=== PATIENT | male | born 1960 | race African-American/Black ===

== ENCOUNTER 2017-03-10 09:49 | Inpatient (IN) | payer OTHER ==
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
[2017-03-10] MEDS ORDERED: MAG HYDROX/AL HYDROX/SIMETH 30 ML UNIT-DOSE CUP PO PRN (12:51)
[2017-03-10] MEDS ORDERED: MAGNESIUM HYDROX 2400MG/30ML ORAL SUSPENSION 30 ML CUP PO PRN (12:51)
[2017-03-10] MEDS ORDERED: MENTHOL/PHENOL 1 EACH UD MM PRN (12:51)
[2017-03-10] MEDS ORDERED: guaiFENesin/D-METHORPHAN HB 10 ML UNIT-DOSE CUPS PO PRN (12:51)
[2017-03-10] MEDS ORDERED: P-EPHED 60MG/TRIPROLIDI 2.5MG TABLET PO PRN (12:51)
[2017-03-10] MEDS ORDERED: MAGNESIUM CITRATE 300 ML BOTTLE PO PRN (12:51)
[2017-03-10] MEDS ORDERED: LOPERAMIDE HCL 2 MG CAPSULE PO PRN (12:51)
[2017-03-10] MEDS ORDERED: ACETAMINOPHEN 325 MG TABLET (FP) PO PRN (12:51)
[2017-03-10] MEDS ORDERED: hydrOXYzine PAMOATE 25 MG CAPSULE (FP) PO PRN (12:51)
[2017-03-10] MEDS ORDERED: IBUPROFEN 400 MG TABLET (FP) PO PRN (12:51)
[2017-03-10] MEDS ORDERED: diazePAM 5 MG TABLET PO ONE (13:57)
[2017-03-10] MEDS: diazePAM 5 MG TABLET PO SCH ×2 (14:50→22:51)
--- NOTE | 2017-03-10 15:09 | CONSULT ---
[facility] Psychiatric Consult - Data Date of interview: 03/10/17 Admission source: [facility] Identifying data: This is 56 years old male with psychiatric hospitalization historyintoxicted with: Alcohol, Opioids, Nicotine and Xanax Substance Abuse History: - Smoking Cessation. Smoking history: Never smoked. Have you smoked in the past 12 months: No. Aproximately how many cigarettes per day: 0. Cigars Per Day: 0. Hx Chewing Tobacco Use: No. Initiated information on smoking cessation: No. 'Breaking Loose' booklet given: . - Substance & Tx. History. Hx Alcohol Use: Yes. Hx Substance Use: Yes. Substance Use Type: Alcohol, Tranquilizers. Hx Substance Use Treatment: Yes ( [facility] ). - Substances Abused. Alcohol-beer. Route: Oral. Frequency: Daily. Amount used: 1-6 pk. Age of first use: 17. Date of Last Use: . Xanax. Route: Oral. Frequency: Daily. Amount used: 2 mg. Age of first use: 54. Date of Last Use: 03/08/17 Medical History: DM-2 Psychiatric History: Patients reports history of MDD, Panic disorder, anxiety and depression, reports taking prior to admission: Insulin and Klonopin Physical/Sexual Abuse/Trauma History: Unclear Additional Comment: Observation. Detox Unit Care Protocol Mental Status Exam - Mental Status Exam Alert and Oriented to: Person Cognitive Function: Impaired Patient Appearance: Unkempt Mood: Nervous, Anxious, Irritable Affect: Inappropriate Patient Behavior: Restless, Guarded, Suspicious, Talkative Speech Pattern: Excessive Voice Loudness: Mildly Loud Thought Process: Circumstantial, Flight of Ideas Thought Disorder: Present Hallucinations: Denies Suicidal Ideation: Denies Homicidal Ideation: Denies Insight/Judgement: Impaired Sleep: Difficulty falling asleep Appetite: Weight gain Muscle strength/Tone: Mild Hypertonicity Gait/Station: Normal Additional Comments: Observation. Detox Unit Care Protocol Psychiatric Findings - Problem List ([place] 1, 2,3) (1) Alcohol dependence with uncomplicated withdrawal Current Visit: Yes Status: Chronic (2) Anxiety and depression Current Visit: Yes Status: Chronic (3) Methadone maintenance therapy patient Current Visit: Yes Status: Chronic Comment: st tee 80mg pending verification (4) Opioid dependence on agonist therapy Current Visit: Yes Status: Chronic (5) Xanax use disorder, mild Current Visit: Yes Status: Chronic (6) MDD (major depressive disorder), recurrent episode, moderate Current Visit: No Status: Chronic Comment: . - Initial Treatment Plan Initial Treatment Plan: Observation. Detox Unit Care Protocol. Haldol 1mg q4 po prn for anxiety and agitation
[2017-03-10] MEDS ORDERED: HALOPERIDOL 1 MG TABLET (FP) PO PRN (15:15)
[2017-03-10] MEDS ORDERED: INSULIN SLIDING SCALE (NOVOLOG) 1 VIAL SQ SCH (16:30)
[2017-03-10] MEDS ORDERED: INSULIN (NOVOLOG) ASPART 100 UNITS/ML 10ML VIAL ONE (16:40)
[2017-03-10] MEDS: diazePAM 5 MG TABLET PO PRN (16:57)
[2017-03-10 17:45] LABS: URINE APPEARANCE CLEAR; URINE BILIRUBIN NEGATIVE (NEGATIVE); URINE BLOOD NEGATIVE (NEGATIVE); URINE COLOR STRAW; URINE GLUCOSE (UA) 3+ (NEGATIVE); URINE KETONE NEGATIVE (NEGATIVE); URINE LEUK ESTERASE NEGATIVE (NEGATIVE); URINE NITRITE NEGATIVE (NEGATIVE); URINE PROTEIN NEGATIVE (NEGATIVE); URINE UROBILINOGEN NEGATIVE E.U./dl (0.2-1.0)
[2017-03-10] MEDS: THIAMINE HCL 100 MG TABLET (FP) PO SCH (22:51)
[2017-03-11] MEDS ORDERED: METHADONE HCL 10 MG TABLET ONE (05:02)
[2017-03-11] MEDS ORDERED: METHADONE HCL 40 MG DISPERSABLE TABLET ONE (05:03)
[2017-03-11] MEDS: METHADONE 80 MG, METHADONE 20 MG PO SCH (05:31)
[2017-03-11] MEDS: diazePAM 5 MG TABLET PO SCH ×3 (05:31→22:33)
[2017-03-11] MEDS ORDERED: METHADONE HCL 10 MG TABLET PO SCH (06:00)
[2017-03-11] MEDS ORDERED: INSULIN (NOVOLOG) ASPART 100 UNITS/ML 10ML VIAL ONE ×2 (06:38→11:31)
[2017-03-11] MEDS: INSULIN (NOVOLOG MIX 70/30) 100 UNITS/ML MDV SQ SCH ×2 (06:54→16:51)
[2017-03-11] MEDS: INSULIN SLIDING SCALE (NOVOLOG) 1 VIAL SQ SCH ×3 (06:55→16:51)
[2017-03-11] MEDS: PRENATAL VITAMINS W/ FOLIC ACID TABLET (FP) PO SCH (10:26)
[2017-03-11] MEDS: diazePAM 5 MG TABLET PO PRN ×3 (10:26→21:01)
--- NOTE | 2017-03-11 11:17 | PN ---
S CIWA - CIWA Score Nausea/Vomitin-No Nausea/No Vomiting Muscle Tremors: 4-Moderate,w/Arms Extend Anxiety: 4-Mod. Anxious/Guarded Agitation: 4-Moderately Restless Paroxysmal Sweats: 1-Minimal Palms Moist Orientation: 0-Oriented Tacttile Disturbances: 3-Moderate Itch/Numb/Burn Auditory Disturbances: 0-None Visual Disturbances: 0-None Headache: 0-None Present CIWA-Ar Total Score: 16 BHS Progress Note (SOAP) Subjective: ANXIETY,TREMORS,SWEATS. Objective: 03/11/17 11:18 Vital Signs Temperature 96.8 F L 03/11/17 10:04 Pulse Rate 83 03/11/17 10:04 Respiratory Rate 18 03/11/17 10:04 Blood Pressure 137/92 03/11/17 10:04 O2 Sat by Pulse Oximetry (%) Laboratory Last Values POC Glucometer 320 UNITS (()) 03/11/17 05:07 Urine Color Straw 03/10/17 14:00 Urine Appearance Clear 03/10/17 14:00 Urine pH 6.0 (5.0-8.0) 03/10/17 14:00 Ur Specific [place] 1.007 (1.001-1.035) 03/10/17 14:00 Urine Protein Negative (NEGATIVE) 03/10/17 14:00 Urine Glucose (UA) 3+ (NEGATIVE) H 03/10/17 14:00 Urine Ketones Negative (NEGATIVE) 03/10/17 14:00 Urine Blood Negative (NEGATIVE) 03/10/17 14:00 Urine Nitrite Negative (NEGATIVE) 03/10/17 14:00 Urine Bilirubin Negative (NEGATIVE) 03/10/17 14:00 Urine Urobilinogen Negative E.U./dl (0.2-1.0) 03/10/17 14:00 Ur Leukocyte Esterase Negative (NEGATIVE) 03/10/17 14:00 Assessment: 03/11/17 11:18 WITHDRAWAL SX Plan: CONTINUE DETOX
[2017-03-11 11:26] LABS: MCH 27.1 pg (25.7-33.7); MCHC 32.6 g/dl (32.0-35.9); MEAN PLT VOLUME 9.8 fl (7.5-11.1); PLATELET COUNT 233 K/MM3 (134-434); RDW 16.8 % (11.9-15.9); WHITE BLOOD COUNT 3.7 K/mm3 (4.0-10.0)
--- NOTE | 2017-03-11 11:28 | EKG ---
Test Reason : Blood Pressure : / mmHG Vent. Rate : 070 BPM Atrial Rate : 070 BPM P-R Int : 152 ms QRS Dur : 102 ms QT Int : 418 ms P-R-T Axes : 019 -22 029 degrees QTc Int : 451 ms NORMAL SINUS RHYTHM WITH SINUS ARRHYTHMIA NON-SPECIFIC INTRA-VENTRICULAR CONDUCTION DELAY NO PREVIOUS ECGS AVAILABLE Confirmed by ANDREEA MALIK MD ([id number]) on 03/11/2017 11:28:11 AM Referred By: Confirmed By:ANDREEA MALIK MD
[2017-03-11 11:34] LABS: ALBUMIN 4.2 g/dl (3.4-5.0); ANION GAP 9 (8-16); CALCIUM 9.4 mg/dL (8.5-10.1); CO2 34 mmol/L (21-32)
[2017-03-11 11:38] LABS: ALK PHOS 153 U/L (45-117); BILIRUBIN,TOTAL 0.9 mg/dL (0.2-1.0); COCKROFT - GAULT 120.48; CREATININE 0.8 mg/dL (0.7-1.3); SGOT/AST 27 U/L (15-37); SGPT/ALT 26 U/L (12-78); TOT PROT 7.8 g/dl (6.4-8.2)
[2017-03-11 11:40] LABS: GLUCOSE,RANDOM 385 mg/dL (74-106)
[2017-03-11] MEDS: THIAMINE HCL 100 MG TABLET (FP) PO SCH (22:33)
[2017-03-12] MEDS ORDERED: METHADONE HCL 10 MG TABLET ONE (01:59)
[2017-03-12] MEDS ORDERED: METHADONE HCL 40 MG DISPERSABLE TABLET ONE (02:00)
[2017-03-12] MEDS: METHADONE 80 MG, METHADONE 20 MG PO SCH (05:10)
[2017-03-12] MEDS: diazePAM 5 MG TABLET PO PRN ×4 (05:13→20:54)
[2017-03-12] MEDS: INSULIN SLIDING SCALE (NOVOLOG) 1 VIAL SQ SCH ×3 (06:16→16:40)
[2017-03-12] MEDS ORDERED: INSULIN (NOVOLOG MIX 70/30) 100 UNITS/ML MDV SQ ONE (06:18)
[2017-03-12] MEDS: INSULIN (NOVOLOG MIX 70/30) 100 UNITS/ML MDV SQ SCH ×2 (06:18→16:40)
[2017-03-12] MEDS ORDERED: INSULIN (NOVOLOG) ASPART 100 UNITS/ML 10ML VIAL ONE ×2 (06:27→16:35)
[2017-03-12] MEDS: diazePAM 5 MG TABLET PO SCH ×2 (10:30→22:49)
[2017-03-12] MEDS: PRENATAL VITAMINS W/ FOLIC ACID TABLET (FP) PO SCH (10:30)
--- NOTE | 2017-03-12 14:17 | PN ---
S CIWA - CIWA Score Nausea/Vomitin Muscle Tremors: 2 Anxiety: 2 Agitation: 2 Paroxysmal Sweats: 2 Orientation: 0-Oriented Tacttile Disturbances: 1-Very Mild Itch/Numbness Auditory Disturbances: 0-None Visual Disturbances: 1-Very Mild Sensitivity Headache: 2-Mild CIWA-Ar Total Score: 14 BHS COWS - Scale Resting Pulse: 0= [place] 80 or Below Sweatin=Flushed/Facial Moisture Restless Observation: 1= Difficult to Sit Still Pupil Size: 0= Normal to Room Light Bone or Joint Aches: 2= Severe Diffuse Aches Runny Nose/ Eye Tearin= Runny Nose/Eyes GI Upset > 30mins: 1= Stomach Cramp Tremor Observation of Outstretched Hands: 2= Slight Tremor Visible Yawning Observation: 1= 1-2x During Session Anxiety or Irritability: 2=Irritable/Anxious Goose Flesh Skin: 0=Smooth Skin COWS Score: 13 S Progress Note (SOAP) Subjective: Anxiety, constipation, foot pain, abdominal discomfort and sweats Objective: 03/12/17 14:17 Vital Signs - 8 hr 03/12/17 03/12/17 06:49 09:49 Temperature 96.8 F L 96.0 F L Pulse Rate 71 78 Respiratory 18 18 Rate Blood Pressure 134/80 115/74 Laboratory Last Values WBC 3.7 K/mm3 (4.0-10.0) L 03/11/17 06:00 RBC 4.72 M/mm3 (4.00-5.60) 03/11/17 06:00 Hgb 12.8 GM/dL (11.7-16.9) 03/11/17 06:00 Hct 39.2 % (35.4-49) 03/11/17 06:00 MCV 83.0 fl (80-96) 03/11/17 06:00 MCHC 32.6 g/dl (32.0-35.9) 03/11/17 06:00 RDW 16.8 % (11.9-15.9) H D 03/11/17 06:00 Plt Count 233 K/MM3 (134-434) 03/11/17 06:00 MPV 9.8 fl (7.5-11.1) 03/11/17 06:00 Sodium 135 mmol/L (136-145) L 03/11/17 06:00 Potassium 3.9 mmol/L (3.5-5.1) 03/11/17 06:00 Chloride 92 mmol/L (98-107) L 03/11/17 06:00 Carbon Dioxide 34 mmol/L (21-32) H 03/11/17 06:00 Anion Gap 9 (8-16) 03/11/17 06:00 BUN 7 mg/dL (7-18) D 03/11/17 06:00 Creatinine 0.8 mg/dL (0.7-1.3) 03/11/17 06:00 Creat Clearance w eGFR > 60 (>60) 03/11/17 06:00 POC Glucometer 76 UNITS (()) 03/12/17 11:06 Random Glucose 385 mg/dL (74-106) H* D 03/11/17 06:00 Calcium 9.4 mg/dL (8.5-10.1) 03/11/17 06:00 Total Bilirubin 0.9 mg/dL (0.2-1.0) D 03/11/17 06:00 AST 27 U/L (15-37) D 03/11/17 06:00 ALT 26 U/L (12-78) D 03/11/17 06:00 Alkaline Phosphatase 153 U/L (45-117) H 03/11/17 06:00 Total Protein 7.8 g/dl (6.4-8.2) 03/11/17 06:00 Albumin 4.2 g/dl (3.4-5.0) D 03/11/17 06:00 Urine Color Straw 03/10/17 14:00 Urine Appearance Clear 03/10/17 14:00 Urine pH 6.0 (5.0-8.0) 03/10/17 14:00 Ur Specific [place] 1.007 (1.001-1.035) 03/10/17 14:00 Urine Protein Negative (NEGATIVE) 03/10/17 14:00 Urine Glucose (UA) 3+ (NEGATIVE) H 03/10/17 14:00 Urine Ketones Negative (NEGATIVE) 03/10/17 14:00 Urine Blood Negative (NEGATIVE) 03/10/17 14:00 Urine Nitrite Negative (NEGATIVE) 03/10/17 14:00 Urine Bilirubin Negative (NEGATIVE) 03/10/17 14:00 Urine Urobilinogen Negative E.U./dl (0.2-1.0) 03/10/17 14:00 Ur Leukocyte Esterase Negative (NEGATIVE) 03/10/17 14:00 RPR Titer Nonreactive (NONREACTIVE) 03/11/17 06:00 labs noted, elevated glucose Assessment: 03/12/17 14:17 withdrawal sx Plan: continue detox and diabetes regimen
[2017-03-12] MEDS: diphenhydrAMINE HCL 50 MG CAPSULE PO PRN (22:49)
[2017-03-12] MEDS: THIAMINE HCL 100 MG TABLET (FP) PO SCH (22:49)
[2017-03-13] MEDS ORDERED: METHADONE HCL 10 MG TABLET ONE (03:46)
[2017-03-13] MEDS ORDERED: METHADONE HCL 40 MG DISPERSABLE TABLET ONE (03:47)
[2017-03-13] MEDS: METHADONE 80 MG, METHADONE 20 MG PO SCH (05:25)
[2017-03-13] MEDS: diazePAM 5 MG TABLET PO PRN (05:27)
[2017-03-13] MEDS ORDERED: INSULIN (NOVOLOG) ASPART 100 UNITS/ML 10ML VIAL ONE ×2 (05:44→16:34)
[2017-03-13] MEDS: INSULIN (NOVOLOG MIX 70/30) 100 UNITS/ML MDV SQ SCH ×2 (06:39→16:36)
[2017-03-13] MEDS: INSULIN SLIDING SCALE (NOVOLOG) 1 VIAL SQ SCH ×3 (06:40→16:37)
[2017-03-13] MEDS: PRENATAL VITAMINS W/ FOLIC ACID TABLET (FP) PO SCH (10:34)
[2017-03-13] MEDS: diazePAM 5 MG TABLET PO SCH ×2 (10:34→21:21)
--- NOTE | 2017-03-13 16:28 | PN ---
[facility] Progress Note (SOAP) Subjective: Anxious, restless, interrupted sleep; concerned about his finger sticks too high (ac breakfast this morning was 360) and that he doesn't want to lose his legs. Patient stated his A1c 21/2 months ago was 6.2% and that had DMT2 x 30 years and takes 8 units of insulin 70/30 ac breakfast and ac dinner. He reports taking regular insulin sliding scale with coverage ac lunch and ac supper. Patient requesting FS QID as he has been doing at home. Machine Made Shoe Unit Worker educated patient on importance of diabetic diet but patient reluctant to change his diet stating that he doesn't eat diabetic diet and wants to stay on regular diet. Patient stated lantus and oral antidiabetic agents no longer works for him and that he follows up with his [facility] regularly. Objective: 03/13/17 16:27 Last Vital Signs Temp Pulse Resp BP Pulse Ox 97.6 F 74 18 121/78 03/13/17 14:00 03/13/17 14:00 03/13/17 14:00 03/13/17 14:00 Laboratory Tests 03/10/17 03/10/17 03/10/17 12:28 14:00 16:21 WBC RBC Hgb Hct MCV MCHC RDW Plt Count MPV Sodium Potassium Chloride Carbon Dioxide Anion Gap BUN Creatinine Creat Clearance w eGFR POC Glucometer 431 456 Random Glucose Calcium Total Bilirubin AST ALT Alkaline Phosphatase Total Protein Albumin Urine Color Straw Urine Appearance Clear Urine pH 6.0 Ur Specific [place] 1.007 Urine Protein Negative Urine Glucose (UA) 3+ H Urine Ketones Negative Urine Blood Negative Urine Nitrite Negative Urine Bilirubin Negative Urine Urobilinogen Negative Ur Leukocyte Esterase Negative RPR Titer 03/11/17 03/11/17 03/11/17 05:07 06:00 06:00 WBC 3.7 L RBC 4.72 Hgb 12.8 Hct 39.2 MCV 83.0 MCHC 32.6 RDW 16.8 H D Plt Count 233 MPV 9.8 Sodium 135 L Potassium 3.9 Chloride 92 L Carbon Dioxide 34 H Anion Gap 9 BUN 7 D Creatinine 0.8 Creat Clearance w eGFR > 60 POC Glucometer 320 Random Glucose 385 H* D Calcium 9.4 Total Bilirubin 0.9 D AST 27 D ALT 26 D Alkaline Phosphatase 153 H Total Protein 7.8 Albumin 4.2 D Urine Color Urine Appearance Urine pH Ur Specific [place] Urine Protein Urine Glucose (UA) Urine Ketones Urine Blood Urine Nitrite Urine Bilirubin Urine Urobilinogen Ur Leukocyte Esterase RPR Titer 03/11/17 03/11/17 03/11/17 06:00 11:29 16:19 WBC RBC Hgb Hct MCV MCHC RDW Plt Count MPV Sodium Potassium Chloride Carbon Dioxide Anion Gap BUN Creatinine Creat Clearance w eGFR POC Glucometer 243 188 Random Glucose Calcium Total Bilirubin AST ALT Alkaline Phosphatase Total Protein Albumin Urine Color Urine Appearance Urine pH Ur Specific [place] Urine Protein Urine Glucose (UA) Urine Ketones Urine Blood Urine Nitrite Urine Bilirubin Urine Urobilinogen Ur Leukocyte Esterase RPR Titer Nonreactive 03/12/17 03/12/17 03/12/17 05:09 11:06 16:29 WBC RBC Hgb Hct MCV MCHC RDW Plt Count MPV Sodium Potassium Chloride Carbon Dioxide Anion Gap BUN Creatinine Creat Clearance w eGFR POC Glucometer 350 76 364 Random Glucose Calcium Total Bilirubin AST ALT Alkaline Phosphatase Total Protein Albumin Urine Color Urine Appearance Urine pH Ur Specific [place] Urine Protein Urine Glucose (UA) Urine Ketones Urine Blood Urine Nitrite Urine Bilirubin Urine Urobilinogen Ur Leukocyte Esterase RPR Titer 03/13/17 03/13/17 05:23 10:36 WBC RBC Hgb Hct MCV MCHC RDW Plt Count MPV Sodium Potassium Chloride Carbon Dioxide Anion Gap BUN Creatinine Creat Clearance w eGFR POC Glucometer 360 118 Random Glucose Calcium Total Bilirubin AST ALT Alkaline Phosphatase Total Protein Albumin Urine Color Urine Appearance Urine pH Ur Specific [place] Urine Protein Urine Glucose (UA) Urine Ketones Urine Blood Urine Nitrite Urine Bilirubin Urine Urobilinogen Ur Leukocyte Esterase RPR Titer Labs noted Assessment: 03/13/17 16:27 Withdrawal symptoms Plan: Continue detox DMT2: FS ac meals and HS, continue regular insulin SS with coverage
[2017-03-13] MEDS: THIAMINE HCL 100 MG TABLET (FP) PO SCH (21:21)
[2017-03-13] MEDS: diphenhydrAMINE HCL 50 MG CAPSULE PO PRN (21:21)
[2017-03-14] MEDS ORDERED: METHADONE HCL 10 MG TABLET ONE (04:56)
[2017-03-14] MEDS ORDERED: METHADONE HCL 40 MG DISPERSABLE TABLET ONE (04:57)
[2017-03-14] MEDS: METHADONE 80 MG, METHADONE 20 MG PO SCH (05:08)
[2017-03-14 06:21] VITALS: BP 132/86; PULSE 79; TEMP 96.4
[2017-03-14] MEDS ORDERED: INSULIN (NOVOLOG) ASPART 100 UNITS/ML 10ML VIAL ONE (06:22)
[2017-03-14] MEDS: INSULIN (NOVOLOG MIX 70/30) 100 UNITS/ML MDV SQ SCH (06:28)
[2017-03-14] MEDS: INSULIN SLIDING SCALE (NOVOLOG) 1 VIAL SQ SCH (06:29)
[2017-03-14] MEDS ORDERED: diazePAM 5 MG TABLET PO SCH (10:00)
--- NOTE | 2017-03-15 13:24 | DS ---
[facility] Detox Discharge Summary Admission Date: 03/10/17 Discharge Date: 03/15/17 - History Present History: Alcohol Dependence, MMTP Pertinent Past History: Type II DM - Physical Exam Results Vital Signs: Vital Signs Temperature 96.4 F L 03/14/17 06:20 Pulse Rate 79 03/14/17 06:20 Respiratory Rate 16 03/14/17 06:20 Blood Pressure 132/86 03/14/17 06:20 O2 Sat by Pulse Oximetry (%) Pertinent Admission Physical Exam Findings: Withdrawal sx. Laboratory Last Values WBC 3.7 K/mm3 (4.0-10.0) L 03/11/17 06:00 RBC 4.72 M/mm3 (4.00-5.60) 03/11/17 06:00 Hgb 12.8 GM/dL (11.7-16.9) 03/11/17 06:00 Hct 39.2 % (35.4-49) 03/11/17 06:00 MCV 83.0 fl (80-96) 03/11/17 06:00 MCHC 32.6 g/dl (32.0-35.9) 03/11/17 06:00 RDW 16.8 % (11.9-15.9) H D 03/11/17 06:00 Plt Count 233 K/MM3 (134-434) 03/11/17 06:00 MPV 9.8 fl (7.5-11.1) 03/11/17 06:00 Sodium 135 mmol/L (136-145) L 03/11/17 06:00 Potassium 3.9 mmol/L (3.5-5.1) 03/11/17 06:00 Chloride 92 mmol/L (98-107) L 03/11/17 06:00 Carbon Dioxide 34 mmol/L (21-32) H 03/11/17 06:00 Anion Gap 9 (8-16) 03/11/17 06:00 BUN 7 mg/dL (7-18) D 03/11/17 06:00 Creatinine 0.8 mg/dL (0.7-1.3) 03/11/17 06:00 Creat Clearance w eGFR > 60 (>60) 03/11/17 06:00 POC Glucometer 413 UNITS (()) 03/14/17 05:59 Random Glucose 385 mg/dL (74-106) H* D 03/11/17 06:00 Calcium 9.4 mg/dL (8.5-10.1) 03/11/17 06:00 Total Bilirubin 0.9 mg/dL (0.2-1.0) D 03/11/17 06:00 AST 27 U/L (15-37) D 03/11/17 06:00 ALT 26 U/L (12-78) D 03/11/17 06:00 Alkaline Phosphatase 153 U/L (45-117) H 03/11/17 06:00 Total Protein 7.8 g/dl (6.4-8.2) 03/11/17 06:00 Albumin 4.2 g/dl (3.4-5.0) D 03/11/17 06:00 Urine Color Straw 03/10/17 14:00 Urine Appearance Clear 03/10/17 14:00 Urine pH 6.0 (5.0-8.0) 03/10/17 14:00 Ur Specific [place] 1.007 (1.001-1.035) 03/10/17 14:00 Urine Protein Negative (NEGATIVE) 03/10/17 14:00 Urine Glucose (UA) 3+ (NEGATIVE) H 03/10/17 14:00 Urine Ketones Negative (NEGATIVE) 03/10/17 14:00 Urine Blood Negative (NEGATIVE) 03/10/17 14:00 Urine Nitrite Negative (NEGATIVE) 03/10/17 14:00 Urine Bilirubin Negative (NEGATIVE) 03/10/17 14:00 Urine Urobilinogen Negative E.U./dl (0.2-1.0) 03/10/17 14:00 Ur Leukocyte Esterase Negative (NEGATIVE) 03/10/17 14:00 RPR Titer Nonreactive (NONREACTIVE) 03/11/17 06:00 labs noted - Treatment Hospital Course: Detox Protocol Followed, Detoxed Safely, Responded well, Discharged Condition Good, Rehab Referral Accepted Patient has Accepted a Rehab Referral to: [facility], 12 step meetings - Medication Discharge Medications: Ambulatory Orders Insulin (Levemir) [Levemir Flexpen -] 0 units SQ ASDIR 03/10/17 Insulin (Novolog 70/30) [Novolog Mix 70/30 Vial] 7 units SQ 1630 03/10/17 Insulin (Novolog 70/30) [Novolog Mix 70/30 Vial] 8 units SQ AM 03/10/17 - Diagnosis (1) Alcohol dependence with uncomplicated withdrawal Status: Acute (2) Opioid dependence on agonist therapy Status: Chronic (3) Type II diabetes mellitus Status: Chronic Qualifiers: Diabetes mellitus complication status: without complication Diabetes mellitus halfway insulin use: with buttermilk drier operator use Qualified Code(s): E11.9 - Type 2 diabetes mellitus without complications (4) MDD (major depressive disorder), recurrent episode, moderate Status: Chronic - AMA Did Patient Leave Against Medical Advice: No
== END 2017-03-14 09:23 | disposition home or self-care (01) | DRG 773 ==
LOC: YASAS 09:49 → Y3N 13:33
PROVIDERS: ADMIT Internal Medicine; ATTEND Internal Medicine
PROC: HZ2ZZZZ Detoxification Services for Substance Abuse Treatment (ICD-10-PCS; principal; 2017-03-10)
DX: F10.230 Alcohol dependence with withdrawal, uncomplicated (principal); F11.20 Opioid dependence, uncomplicated; F13.90 Sedative, hypnotic, or anxiolytic use, unspecified, uncomplicated; F41.8 Other specified anxiety disorders; F33.1 Major depressive disorder, recurrent, moderate
CPT/HCPCS: 36415; 80053; 81003; 85027; 86593; 93005; 93010